=== PATIENT | female | born 1950 | race Caucasian/White ===

== ENCOUNTER → 2017-04-30 | Outpatient (CLI) | payer OTHER, MEDICAID ==
[2014-02-03 10:29] VITALS: BP 113/64
[~2017-04-30] MED LIST: NS 100 ML IV 100 ML IV ONE
[2017-04-30 14:05] LABS: CREATININE 1.18 mg/dL (0.55-1.02)
--- NOTE | 2017-05-01 00:04 | CT ---
CT of the abdomen and pelvis with IV and oral contrast. Indication: Right lower quadrant pain. Comparison: None Technique: 5 millimeter axial images of the abdomen pelvis were obtained after the administration of both oral and IV contrast. Coronal and sagittal reformats were provided from the original data set. Findings: Images of the lower chest show no abnormality. The bone windows demonstrate minimal multile debi discogenic degenerative disease cyst without aggressive lesion. The subcutaneous tissues are unre markable. The abdominal aorta demonstrates atherosclerotic disease. Abdomen: The gallbladder, liver adrenal glands, kidneys, spleen and pancreas show no abnormality. Pelvis: The urinary bladder, large and small bowel are unremarkable. The appendix is not clearly iden tified however there is no evidence of acute appendicitis. There is no free pelvic fluid or adenopath y. Conclusion: No abnormality to explain the patient's right lower quadrant pain, specifically no eviden ce of renal stone or appendicitis. Reported By:
== END ==
LOC: RAD 13:40
PROVIDERS: ATTEND Family Medicine
DX: R10.31 Right lower quadrant pain (principal)
CPT/HCPCS: 36415; 74177; 82565; 84520; A4222